=== PATIENT | female | born 1965 | race Caucasian/White ===

== ENCOUNTER 2022-12-21 21:57 | Emergency (ER) | payer OTHER ==
[~2022-12-21] VITALS: Ht 152.4 cm; Wt 65.8 kg
[2022-12-21 22:05] VITALS: BP 178/122
[2022-12-21] MEDS ORDERED: NS IV 1000 ML 1,000 ML IV STA (22:08)
[2022-12-21] MEDS ORDERED: diphenhydrAMINE 50 MG/ML INJ (BENADRYL) IV STA (22:08)
[2022-12-21] MEDS ORDERED: KETOROLAC 30 MG/ML VIAL IVP STA (22:08)
[2022-12-21] MEDS ORDERED: METOCLOPRAMIDE INJ 10 MG/2 ML (REGLAN) IVP STA (22:08)
--- NOTE | 2022-12-21 22:08 | ED Abdominal Pain ---
General Stated Complaint: SEVERE AB PAIN History of Present Illness Date Seen by Provider: Dec 21, 2022 Time Seen by Provider: 22:05 Initial Comments 57-year-old female presents with left lower quadrant pain patient reports that she thinks she has a kidney stone. She is very dramatic and acting out. Limited. Allergies and Home Medications Allergies Coded Allergies: morphine (Verified Allergy, Unknown, 12/21/22) Patient Home Medication List Home Medication List Reviewed: Yes Review of Systems Review of Systems Constitutional: see HPI Respiratory: No Symptoms Reported Cardiovascular: No Symptoms Reported Gastrointestinal: See HPI, Nausea Genitourinary: See HPI; Denies Burning; Flank Pain Musculoskeletal: no symptoms reported Skin: no symptoms reported Psychiatric/Neurological: No Symptoms Reported Endocrine: No Symptoms Reported Physical Exam Vital Signs Vital Signs - First Documented 12/21/22 22:05 Temp 36.9 Pulse 123 Resp 95 B/P (MAP) 178/122 (140) Pulse Ox 96 O2 Delivery Room Air Capillary Refill : Height/Weight/BMI Height: '" Weight: lbs. oz. kg; BMI Method: General Appearance: other (Yelling and screaming and very uncooperative) Respiratory: chest non-tender, lungs clear Cardiovascular: normal peripheral pulses, regular rate, rhythm Gastrointestinal: other (Deferred, patient will not allow) Neurologic/Psychiatric: alert Skin: normal color, warm/dry Progress/Results/Core Measures Results/Orders Lab Results Laboratory Tests Test 12/21/22 22:12 12/21/22 22:34 Range/Units White Blood Count 7.4 4.3-11.0 10^3/uL Red Blood Count 5.04 3.80-5.11 10^6/uL Hemoglobin 15.3 11.5-16.0 g/dL Hematocrit 45 35-52 % Mean Corpuscular Volume 89 80-99 fL Mean Corpuscular Hemoglobin 30 25-34 pg Mean Corpuscular Hemoglobin Concent 34 32-36 g/dL Red Cell Distribution Width 12.6 10.0-14.5 % Platelet Count 339 130-400 10^3/uL Mean Platelet Volume 10.1 9.0-12.2 fL Immature Granulocyte % (Auto) 0 % Neutrophils (%) (Auto) 45 42-75 % Lymphocytes (%) (Auto) 45 H 12-44 % Monocytes (%) (Auto) 8 0-12 % Eosinophils (%) (Auto) 2 0-10 % Basophils (%) (Auto) 1 0-10 % Neutrophils # (Auto) 3.3 1.8-7.8 10^3/uL Lymphocytes # (Auto) 3.3 1.0-4.0 10^3/uL Monocytes # (Auto) 0.6 0.0-1.0 10^3/uL Eosinophils # (Auto) 0.1 0.0-0.3 10^3/uL Basophils # (Auto) 0.1 0.0-0.1 10^3/uL Immature Granulocyte # (Auto) 0.0 0.0-0.1 10^3/uL Sodium Level 145 135-145 MMOL/L Potassium Level 4.1 3.6-5.0 MMOL/L Chloride Level 111 H 98-107 MMOL/L Carbon Dioxide Level 23 21-32 MMOL/L Anion Gap 11 5-14 MMOL/L Blood Urea Nitrogen 17 7-18 MG/DL Creatinine 0.79 0.60-1.30 MG/DL Estimat Glomerular Filtration Rate 88 BUN/Creatinine Ratio 22 Glucose Level 111 H 70-105 MG/DL Calcium Level 10.9 H 8.5-10.1 MG/DL Corrected Calcium 8.5-10.1 MG/DL Total Bilirubin 0.3 0.1-1.0 MG/DL Aspartate Amino Transf (AST/SGOT) 23 5-34 U/L Alanine Aminotransferase (ALT/SGPT) 30 0-55 U/L Alkaline Phosphatase 97 40-136 U/L Total Protein 7.9 6.4-8.2 GM/DL Albumin 4.9 H 3.2-4.5 GM/DL Urine Color YELLOW Urine Clarity TURBID Urine pH 6.0 5-9 Urine Specific [place] >=1.030 1.016-1.022 Urine Protein TRACE H NEGATIVE Urine Glucose (UA) NEGATIVE NEGATIVE Urine Ketones TRACE H NEGATIVE Urine Nitrite NEGATIVE NEGATIVE Urine Bilirubin 1+ H NEGATIVE Urine Urobilinogen 1.0 < = 1.0 MG/DL Urine Leukocyte Esterase 2+ H NEGATIVE Urine RBC (Auto) NEGATIVE NEGATIVE Urine RBC NONE /HPF Urine WBC 25-50 H /HPF Urine Squamous Epithelial Cells 0-2 /HPF Urine Crystals PRESENT H /LPF Urine Calcium Oxalate Crystals LARGE H /LPF Urine Bacteria FEW H /HPF Urine Casts PRESENT /LPF Urine Hyaline Casts 2-5 H /LPF Urine Mucus LARGE H /LPF Urine Culture Indicated YES My Orders Orders - EVELINE CONNELL DO Cbc With Automated Diff (12/21/22 22:08) Comprehensive Metabolic Panel (12/21/22 22:08) Ua Culture If Indicated (12/21/22 22:08) Ketorolac Injection (Toradol Injection) (12/21/22 22:08) Metoclopramide Injection (Reglan Injecti (12/21/22 22:08) Ns Iv 1000 Ml (Sodium Chloride 0.9%) (12/21/22 22:08) Diphenhydramine Injection (Benadryl Inje (12/21/22 22:08) Ct Abd/Pelvis Wo(Kidney Stone) (12/21/22 22:14) Urine Culture (12/21/22 22:34) Vital Signs/I&O 12/21/22 22:05 Temp 36.9 Pulse 123 Resp 95 B/P (MAP) 178/122 (140) Pulse Ox 96 O2 Delivery Room Air Progress Progress Note : Progress Note Patient was offered Toradol, Reglan and Benadryl to help with her discomfort. She declined any medications. Patient reports that she did not want any narcotics or any other type of medication similar to that. Patient was then ER and acting out and yelling but would not allow us to actively treat her. I have ordered and reviewed by me and showed no acute findings dialysis pending when she left the ER.. Patient would not allow us to CT her she would not sit still and just continue to act out. When I went to discuss with her what her Toradol allergy was she just became more angry and said she wanted to leave. Patient then pulled out her IV and left the ER. After patient had left the ER her urinalysis did return and was consistent with a urinary tract infection. The nursing leave a message that she has a urinary tract infection and antibiotics are at pharmacy that was indicated on the chart. Departure Impression Primary Impression: Abdominal pain Qualified Codes: R10.32 - Left lower quadrant pain Additional Impression: Urinary tract infection Qualified Codes: N30.01 - Acute cystitis with hematuria Disposition: AGAINST MEDICAL ADVICE Condition: Against Medical Advice Departure-Patient Inst. Referrals: NO,LOCAL PHYSICIAN (PCP) Primary Care Physician Scripts Cephalexin (Cephalexin) 500 Mg Tablet 500 MG PO QID, #20 TAB 0 Refills Prov: EVELINE CONNELL DO 12/21/22 EVELINE CONNELL DO Dec 21, 2022 22:08
[2022-12-21 22:28] LABS: BASOPHILS # (AUTO) 0.1 10^3/uL (0.0-0.1); BASOPHILS % (AUTO) 1 % (0-10); EOSINOPHILS # (AUTO) 0.1 10^3/uL (0.0-0.3); EOSINOPHILS % (AUTO) 2 % (0-10); HEMATOCRIT 45 % (35-52); HEMOGLOBIN 15.3 g/dL (11.5-16.0); LYMPHOCYTES # (AUTO) 3.3 10^3/uL (1.0-4.0); LYMPHOCYTES % (AUTO) 45 % (12-44); MEAN CORPUSCULAR HEMOGLOBIN 30 pg (25-34); MEAN CORPUSCULAR HGB CONC 34 g/dL (32-36); MEAN CORPUSCULAR VOLUME 89 fL (80-99); MEAN PLATELET VOLUME 10.1 fL (9.0-12.2); MONOCYTES # (AUTO) 0.6 10^3/uL (0.0-1.0); MONOCYTES % (AUTO) 8 % (0-12); NEUTROPHILS # (AUTO) 3.3 10^3/uL (1.8-7.8); NEUTROPHILS % (AUTO) 45 % (42-75); PLATELET COUNT 339 10^3/uL (130-400); WHITE BLOOD COUNT 7.4 10^3/uL (4.3-11.0)
[2022-12-21 22:44] LABS: BILIRUBIN,URINE 1+ (NEGATIVE); CLARITY,URINE TURBID; COLOR,URINE YELLOW; GLUCOSE, URINE (UA) NEGATIVE (NEGATIVE); KETONES,URINE TRACE (NEGATIVE); LEUKOCYTE ESTERASE ,URINE 2+ (NEGATIVE); NITRITE,URINE NEGATIVE (NEGATIVE); PROTEIN,URINE TRACE (NEGATIVE)
[2022-12-21 22:46] LABS: ALBUMIN 4.9 GM/DL (3.2-4.5); CHLORIDE 111 MMOL/L (98-107); POTASSIUM 4.1 MMOL/L (3.6-5.0); SODIUM 145 MMOL/L (135-145)
[2022-12-21 22:47] LABS: CALCIUM 10.9 MG/DL (8.5-10.1)
[2022-12-21 22:48] LABS: GLUCOSE 111 MG/DL (70-105); TOTAL PROTEIN 7.9 GM/DL (6.4-8.2)
[2022-12-21 22:49] LABS: CARBON DIOXIDE 23 MMOL/L (21-32)
[2022-12-21 22:50] LABS: BILIRUBIN,TOTAL 0.3 MG/DL (0.1-1.0)
[2022-12-21 22:52] LABS: ALKALINE PHOSPHATASE 97 U/L (40-136); CREATININE SERUM 0.79 MG/DL (0.60-1.30); GFR ESTIMATED 88
[2022-12-21 22:53] LABS: BUN/CREATININE RATIO 22
[2022-12-21 22:55] LABS: ALANINE AMINOTRANSFERASE 30 U/L (0-55)
[2022-12-21 23:04] LABS: BACTERIA,URINE FEW /HPF; CALCIUM OXALATE CRYSTALS,UR LARGE /LPF; SQUAMOUS EPITHELIAL CELL,UR 0-2 /HPF; WBC,URINE 25-50 /HPF
[2022-12-21] MEDS ORDERED: CEPH500T PO (23:13)
== END 2022-12-21 23:38 | disposition left against medical advice (07) ==
LOC: ER 21:59
DX: N39.0 Urinary tract infection, site not specified (principal)
CPT/HCPCS: 36415; 80053; 81000; 85025; 87088